=== PATIENT | female | born 2000 | race Caucasian/White ===

== ENCOUNTER 2019-05-11 13:46 | Outpatient (RCR) | payer OTHER, SELFPAY ==
[2019-05-11 14:16] LABS: Hematocrit 32.2 % (37.0-47.0); Hemoglobin 10.7 g/dL (12.0-15.0)
[2019-05-11 15:09] LABS: HIV 1/2 Ab P24 Ag Result Negative (Negative)
--- NOTE | 2019-05-11 20:07 | PC.NURSE ---
Patient to OB stating she is here for Rhogam. Per blood bank pt is RH positive (A+) No rhogam issuued.
[2019-05-12 10:13] LABS: Rapid Plasma Reagin Non-Reactive (NonReactive)
== END 2019-08-09 23:59 | disposition home or self-care (01) ==
LOC: ANHLAB 13:46
PROVIDERS: Visit Provider Obstetrics & Gynecology
DX: Z36.89 Encounter for other specified antenatal screening (principal)
CPT/HCPCS: 36415; 85014; 85018; 86592; 86703; G0432

== ENCOUNTER 2019-07-12 23:30 | Observation (INO) | payer OTHER, SELFPAY ==
--- NOTE | 2019-07-13 01:04 | LDADM ---
This patient, Ector Pope, was admitted to Labor/Delivery/Recovery 105 on 07/12/19 at 23:30. Plans for labor, pain management and were discussed with patient. Patient/family oriented to hospital policies and general routines including ID bracelet, bed and alarms, visiting hours, pain management, procedures, bathroom and other care routines, personal items, smoking policy, room service/diet and guest tray routines, infant security routines, and visiting hours. Patient/Family are encouraged to report perceived risks to care and to ask questions if they do not understand what they are told or what they should do. See OBIX for further documentation.
[2019-07-13 01:05] VITALS: BMI 47.5
--- NOTE | 2019-08-05 11:54 | PM.OBTRLD ---
OB - Triage/Final Diagnosis Visit Information Date of evaluation: 07/13/19 Final Diagnosis (1) False labor: Code(s): O47.9 - False labor, unspecified Status: Acute
== END 2019-07-13 01:25 | disposition home or self-care (01) ==
PROVIDERS: Admitting Provider Obstetrics & Gynecology; Visit Provider Obstetrics & Gynecology
DX: O47.1 False labor at or after 37 completed weeks of gestation (principal); Z3A.38 38 weeks gestation of pregnancy
CPT/HCPCS: G0378; G0379

== ENCOUNTER 2019-07-20 12:14 | Observation (INO) | payer OTHER, SELFPAY ==
--- NOTE | ~2019-07-20 | US_ITS ---
EXAMINATION: US OB limited DATE: 07/20/2019 14:20 INDICATION: Abdomen injury. Third trimester. TECHNIQUE: Real-time ultrasound of the pelvis was performed. COMPARISON: None. FINDINGS: There is a single fetus in vertex presentation. The placenta is anterior. heart rate is 154 be ats per minute (bpm). The amniotic fluid volume is subjectively normal. IMPRESSION: 1. Single living fetus in vertex presentation. Reviewed, dictated and finalized at location A. ING SYSTEMS INSTALLER
--- NOTE | 2019-07-20 12:14 | OBADM ---
This patient, Ector Pope, admitted to the OB room Labor/Delivery/Recovery 118 for observation. Patient/family oriented to hospital policies and general routines including ID bracelet, bed and alarms, visiting hours, pain management, procedures, bathroom and other care routines, personal items, smoking policy, room service/diet, and visiting hours. Patient/Family are encouraged to report perceived risks to care and to ask questions if they do not understand what they are told or what they should do.
[2019-07-20 15:01] VITALS: BP 114/89; PULSE 99
[2019-07-20 16:01] VITALS: BP 128/75; PULSE 84
[2019-07-20 16:44] VITALS: BMI 47.8
--- NOTE | 2019-08-03 19:54 | PM.OBTRLD ---
OB - Triage/Final Diagnosis Final Diagnosis (1) Fall: Code(s): W19.XXXA - Unspecified fall, initial encounter Status: Acute
== END 2019-07-20 18:35 | disposition home or self-care (01) ==
PROVIDERS: Admitting Provider Obstetrics & Gynecology; Visit Provider Obstetrics & Gynecology
DX: O99.89 Other specified diseases and conditions complicating pregnancy, childbirth and the puerperium (principal); W19.XXXA Unspecified fall, initial encounter; Z3A.39 39 weeks gestation of pregnancy
CPT/HCPCS: 76815; G0378; G0379

== ENCOUNTER 2019-07-27 19:15 | Inpatient (IN) | payer OTHER, SELFPAY ==
[2019-07-27] VITALS (7 sets, daily range): BP systolic 118–129; BP diastolic 52–76; PULSE 83–115; TEMP 36.2–37.1; BMI 48.0
[2019-07-27 20:08] LABS: Basophils Percent Auto 0.3 % (0.2-1.2); Eosinophils Percent Auto 0.3 % (0-4.4); Hematocrit 32.7 % (37.0-47.0); Hemoglobin 10.7 g/dL (12.0-15.0); Immature Granulocyte Absolute 0.09 K/mm3 (0.00-0.031); Immature Granulocyte Percent A 0.6 % (0-0.5); Lymphocytes Absolute Auto 1.93 K/mm3 (0.9-3.2); Lymphocytes Percent Auto 13.8 % (18.3-44.2); Mean Corpuscular HGB Conc 32.7 g/dl (32-36); Mean Corpuscular Hemoglobin 28.8 pg (26-34); Mean Corpuscular Volume 88.1 fl (80-100); Mean Platelet Volume 9.5 fl (7.4-10.4); Monocytes Percent Auto 6.9 % (2.6-8.5); Neutrophils Absolute Auto 10.9 K/mm3 (1.3-6.7); Neutrophils Percent Auto 78.1 % (45.5-73.1); Platelet Count Result 246 k/mm3 (150-375); Red Blood Count 3.71 M/mm3 (4.2-5.4); Red Cell Distribution Width 13.1 % (11.5-14.5)
--- NOTE | 2019-07-27 20:16 | LDADM ---
This patient, Ector Pope, was admitted to Labor/Delivery/Recovery 108 on 07/27/19 at 19:15. Plans for labor, pain management and were discussed with patient. Patient/family oriented to hospital policies and general routines including ID bracelet, bed and alarms, visiting hours, pain management, procedures, bathroom and other care routines, personal items, smoking policy, room service/diet and guest tray routines, infant security routines, and visiting hours. Patient/Family are encouraged to report perceived risks to care and to ask questions if they do not understand what they are told or what they should do. See OBIX for further documentation.
[2019-07-27] MEDS: AMPICILLIN 2 GM/NS 100 ML 2 GM/100 ML BAG IVPB (20:47)
[2019-07-27] MEDS: LACTATED RINGERS 1,000 ML 125 ML IV CONT (20:47)
[2019-07-27] MEDS: DINOPROSTONE 10 MG VAG INSERT VAGINAL (20:54)
[2019-07-28] VITALS (100 sets, daily range): BP systolic 60–157; BP diastolic 18–102; PULSE 68–151; TEMP 35.9–37.1; O2SAT 84–100
[2019-07-28] MEDS: AMPICILLIN 1 GM/NS 50 ML 1 GM/50 ML BAG IVPB ×6 (00:52→20:58)
--- NOTE | 2019-07-28 02:50 | WPDANESEPP ---
Anes - Eval Pre Procedure Procedure: Labor epidural Date/Time: 07/28/19 02:50 Surgeon: Ryan Cortes M.D. Preop Diagnosis: pain during labor Pre Op Diagnosis: IOL Patient Data Age: 18 Gender: F Height: 1.68 m Weight: 135 kg Last Vital Signs Temp 36.7 C 07/28/19 00:58 Pulse 94 07/27/19 23:01 BP 120/54 L 07/27/19 23:01 Allergies Allergy/AdvReac Type Severity Reaction Status Date / Time No Known Allergies Allergy Unknown Verified 07/08/19 09:21 Home Medications Medication Instructions Recorded Confirmed Type PNV cmb#95-ferrous fumarate-FA 1 tablet PO DAILY 06/29/19 06/29/19 History [] ferrous sulfate [Iron (ferrous 325 mg PO BID 06/29/19 06/29/19 History sulfate)] Laboratory Tests 07/27/19 07/27/19 07/27/19 20:02 20:02 20:02 WBC 14.0 K/mm3 H K/mm3 (4.5-10.0) RBC 3.71 M/mm3 L M/mm3 (4.2-5.4) Hgb 10.7 g/dL L g/dL (12.0-15.0) Hct 32.7 % L % (37.0-47.0) MCV 88.1 fl fl (80-100) MCH 28.8 pg pg (26-34) MCHC 32.7 g/dl g/dl (32-36) RDW 13.1 % % (11.5-14.5) Plt Count 246 k/mm3 k/mm3 (150-375) MPV 9.5 fl fl (7.4-10.4) Immature Gran % (Auto) 0.6 % H % (0-0.5) Neut % (Auto) 78.1 % H % (45.5-73.1) Lymph % (Auto) 13.8 % L % (18.3-44.2) [place] % (Auto) 6.9 % % (2.6-8.5) Eos % (Auto) 0.3 % % (0-4.4) Baso % (Auto) 0.3 % % (0.2-1.2) Lymph # (Auto) 1.93 K/mm3 K/mm3 (0.9-3.2) [place] # (Auto) 1.0 K/mm3 H K/mm3 (0.1-0.6) Eos # (Auto) 0.0 K/mm3 K/mm3 (0-0.3) Baso # (Auto) 0.0 K/mm3 K/mm3 (0.0-0.1) Abs Immat Gran (auto) 0.09 K/mm3 H K/mm3 (0.00-0.031) Absolute Neuts (auto) 10.9 K/mm3 H K/mm3 (1.3-6.7) Absolute Nucleated RBC 0.0 K/mm3 K/mm3 (0.0-0.012) Nucleated RBC % 0.0 % % (0.0-0.2) RPR Pending Blood Type A Positive Antibody Screen Negative Patient hx anesthesia problems: none Family hx anesthesia problems: none PMFSH Social History Social History Years smoked: 2 Smoking status: Former smoker Tobacco type: cigarettes Second hand tobacco smoke exposure: Yes Substance use: former Gender identity (if verbalized by the patient): Female Spiritual care concerns: No Exam Day of Procedure 07/28/19 02:50
--- NOTE | 2019-07-28 07:34 | WPDOBADMIT ---
Obstetrics - Admit Note Admission Note: record reviewed. No pertinent additions to the history and/or any subsequent changes in the physical findings that are not consistent with the expected course of the were found. Additions to the history and/or subsequent changes in the physical findings follow. at 40+1 for induction of labor. Cervidil currently in place, due to come out at 0900. GBS+ so continue ampicillin.
--- NOTE | 2019-07-28 09:24 | PM.GYNPNOP ---
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 and plan (1) Term : Code(s): Z34.90 - Encounter for supervision of normal , unspecified, unspecified trimester Status: Acute Assessment and Plan: reassuring FHT's, arom - clear, 2-33/50/-3 Time Spent With Patient Time: Total time spent is greater than 50% in coordination of care (as documented) at patient's floor/unit and/or counseling patient: Time with patient: less than 15 minutes ADULT BASIC EDUCATION TEACHER- PN:Subj Post-Op Subjective Date/time seen: 07/28/19 09:24 ADULT BASIC EDUCATION TEACHER - PN: Obj Data Vital Signs Vital Signs: Vital Signs - 24 hr 07/27/19 20:32 07/27/19 20:44 07/27/19 21:23 Temperature 97.2 F L 98.8 F Pulse Rate 115 H 97 Blood Pressure 129/52 L 119/68 07/27/19 21:30 07/27/19 22:00 07/27/19 22:31 Temperature Pulse Rate 115 H 100 83 Blood Pressure 118/76 122/66 118/66 07/27/19 23:01 07/28/19 00:58 07/28/19 04:59 Temperature 98.1 F 97.9 F Pulse Rate 94 Blood Pressure 120/54 L 07/28/19 08:05 07/28/19 08:10 Temperature 98 F Pulse Rate 95 Blood Pressure 123/70 Intake/Output Intake/Output: Intake & Output 07/25/19 07/26/19 07/27/19 07/28/19 23:59 23:59 23:59 23:59 Intake Total 100 Balance 100 Meds/Results Medications: Active Medications Generic Name Dose Route Start Last Admin Trade Name Freq PRN Reason Stop Dose Admin Atropine Sulfate 0.4 mg 07/28/19 02:49 Atropine Sulfate IV PUSH PRN PRN Bradycardia Ephedrine Sulfate 5 mg 07/28/19 02:49 Ephedrine Sulfate Inj IV PUSH Q5MIN PRN for hypotension (syst. < 100) Fentanyl Citrate 50 mcg 07/27/19 19:35 Sublimaze IV PUSH Q1H PRN Pain Rated 5 or Less Fentanyl Citrate 100 mcg 07/27/19 19:35 Sublimaze IV PUSH Q1H PRN Pain Rated 6 or Greater Lactated Ringer's 1,000 mls @ 125 mls/hr 07/27/19 19:35 07/27/19 20:47 Lr - Lactated Ringers Iv IV CONT 125 mls/hr .Q8H NATO Administration Oxytocin/Dextrose 500 mls @ 125 mls/hr 07/27/19 19:35 Oxytocin 30 Units/D5w 500 Ml IV CONT .Q4H PRN if not received in labor Ampicillin Sodium 1 gm in 50 mls @ 100 mls/hr 07/28/19 00:00 07/28/19 09:10 Ampicillin 1 Gm/Ns 50 Ml IVPB 100 mls/hr Q4H NATO Administration Oxytocin/Dextrose 500 mls @ 2 mls/hr 07/28/19 08:00 Oxytocin 30 Units/D5w 500 Ml IV CONT .Q24H NATO Oxytocin/Dextrose 500 mls @ 999 mls/hr 07/27/19 19:35 Oxytocin 30 Units/D5w 500 Ml IV CONT .Q31M PRN if not received in labor Naloxone HCl 0.1 mg 07/27/19 19:35 Narcan IV PUSH Q2M PRN Respiratory rate less than 10 Naloxone HCl 0.1 mg 07/28/19 02:49 Narcan IV PUSH ONCE PRN for resp. rate less than 10 Ondansetron HCl 4 mg 07/27/19 19:35 Zofran Inj IV PUSH Q6H PRN Nausea And Vomiting Phenylephrine/Sodium Chloride 100 mcg 07/28/19 02:49 Phenylephrine IV PUSH Q5MIN PRN for hypotension (syst. < 100) Labs CBC & Chem 7: 07/27/19 20:02 Labs: Laboratory Results - last 24 hr 07/27/19 07/27/19 20:02 20:02 WBC 14.0 H RBC 3.71 L Hgb 10.7 L Hct 32.7 L MCV 88.1 MCH 28.8 MCHC 32.7 RDW 13.1 Plt Count 246 MPV 9.5 Immature Gran % (Auto) 0.6 H Neut % (Auto) 78.1 H Lymph % (Auto) 13.8 L [place] % (Auto) 6.9 Eos % (Auto) 0.3 Baso % (Auto) 0.3 Lymph # (Auto) 1.93 [place] # (Auto) 1.0 H Eos # (Auto) 0.0 Baso # (Auto) 0.0 Abs Immat Gran (auto) 0.09 H Absolute Neuts (auto) 10.9 H Absolute Nucleated RBC 0.0 Nucleated RBC % 0.0 Blood Type A Positive Antibody Screen Negative
[2019-07-28 09:25] LABS: Rapid Plasma Reagin Non-Reactive (NonReactive)
[2019-07-28] MEDS: LACTATED RINGERS 1,000 ML 125 ML IV CONT ×2 (18:25→21:00)
[2019-07-28] MEDS: PHENYLEPHRINE 1,000 MCG/10 ML SYRINGE 100 MCG IV PUSH ×2 (19:33→19:36)
[2019-07-29] VITALS (18 sets, daily range): BP systolic 96–143; BP diastolic 59–90; PULSE 78–203; RESP 16–18; TEMP 36.5–37.4; O2SAT 99–100
--- NOTE | 2019-07-29 01:03 | PM.OBPRVD ---
OB - Delivery Note Procedure Delivery date: 07/29/19 Procedure: events: Labor Induction Intrapartal events: None Induction method: AROM and per pitocin protocol Delivery monitor: external FHT and internal uterine Route of delivery: Laceration description: Vaginal - 1st Degree Delivery repair: vicryl Specimen: No Estimated blood loss (mL): 400 Anesthesia type: Epidural Disposition: floor Baby Date of : 07/29/19 Time of : 00:47 Weeks of gestation at delivery: 40 gender: Female Weight (pounds): 7 Weight (ounces): 15 presentation: vertex position: Left Occiput Anterior Placenta delivery description: Spontaneous cord vessel description: 3 Vessels score one minute: 8 score five minutes: 9
[2019-07-29] MEDS: WITCH HAZEL 40 PADS 1 PAD TOPICAL (02:08)
[2019-07-29] MEDS: BENZOCAINE 20% AER SPR (*SP) 56 GM CAN 1 SPRAY TOPICAL (02:08)
--- NOTE | 2019-07-29 03:19 | OBPPTRN ---
Patient transferred to post room #279 via (wheelchair) - infant transported to via crib. Support person present. Oriented to unit, room, information board, rooming in, admission packet and security measures. Patient verbalizes understanding.
[2019-07-29] MEDS: IBUPROFEN 600 MG TABLET PO (12:05)
[2019-07-29] MEDS: MEASLES,MUMPS,RUBELLA VACCINE 0.5 ML VIAL (12:05)
[2019-07-30 05:17] LABS: Hemoglobin 9.3 g/dL (12.0-15.0)
--- NOTE | 2019-07-30 07:00 | PC.NURSE ---
Pt introductions made and plan of care discussed per post , pain management, bottle feeding, daily care activities and pending discharge to home. PT verbalized understanding of such care.
--- NOTE | 2019-07-30 07:40 | P.PNOB_ITS ---
OB - PN: Subj Subjective Date/time seen: 07/30/19 07:40 Patient comments: no complaints, pain well controlled and other (Lochia similar to menses) [place] baby status: doing well OB - PN: Obj Data Labs CBC & Chem 7: 07/30/19 04:32 Labs: Laboratory Results - last 24 hr 07/30/19 04:32 Hgb 9.3 L Hct 28.0 L OB - PN A/P Plan day: 1 (s/p vaginal delivery, doing well) Plan: routine care Time Spent With Patient Time: Total time spent is greater than 50% in coordination of care (as do cumented) at patient's floor/unit and/or counseling patient: Exam Const: General: no acute distress GI: Inspection: other (Fundus firm and nontender at umbilicus) GI Palp: Yes Soft to palpation and No Tenderness to palpation present (GI) Extrem: General: no edema
[2019-07-30 08:10] VITALS: BP 134/86; PULSE 75; RESP 18; TEMP 36.4
[2019-07-30] MEDS: POLYSACCHARIDE IRON COMPLEX 150 MG CAPSULE PO (08:48)
[2019-07-30] MEDS: DOCUSATE SODIUM 100 MG CAPSULE PO (08:48)
[2019-07-30] MEDS: IBUPROFEN 600 MG TABLET PO (10:44)
[2019-07-30 10:45] VITALS: BP 128/75; PULSE 89; RESP 16; TEMP 36.6; O2SAT 99
--- NOTE | 2019-07-30 11:00 | PC.NURSE ---
Patient viewed the discharge video Mother & Baby Care, The First Two Weeks . Patient was given the opportunity and encouraged to ask questions. Patient verbalized understanding of information shared and has been given the mother/baby guide for home reference.
--- NOTE | 2019-07-30 12:40 | PC.NURSE ---
PT received discharge instructions per protocol and verbalized understanding of such instructions.
--- NOTE | 2019-07-30 13:33 | PCCCNOTE ---
Care Coordination Note: Met with pt. today who reports she lives at home with her mother, father, and grandparents. This is pt.'s first child. FOB is Shad who is in the room. Pt. reports Shad and her family are her biggest support. Pt. plans to start WIC services at discharge with an appointment already established for tomorrow 07/31. Pt. has all supplies at home including a crib, car seat, clothing, diapers, and bottles. Pt. was provided resources. Pt. denies any further case management needs.
--- NOTE | 2019-07-30 14:06 | WPDANLDPN2 ---
Anes-Prog Note L&D Date/Time: 07/30/19 14:06 Comfortable throughout: labor and delivery Neuraxial method: epidural Epidural/Spinal procedure site: clean & non-tender Neuro status: Neuro function grossly intact. Cardiovascular status: normal Respiratory status: normal Airway patency: baseline Mental status: baseline Post-Op hydration status: normal Vital Signs: Last Vital Signs Temp 97.8 F 07/30/19 10:45 Pulse 89 07/30/19 10:45 Resp 16 07/30/19 10:45 BP 128/75 07/30/19 10:45 Pulse Ox 99 07/30/19 10:45 Post-procedural complaints: none Patient feedback: Patient satisfied with anesthetic care.
--- NOTE | 2019-07-30 14:25 | PC.NURSE ---
PT discharged to home ambulatory accompanied by significant other and to waiting car. Follow up appts confirmed
[2019-08-01 11:12] VITALS: BP 122/78; PULSE 96; RESP 20; TEMP 36.8; O2SAT 99
--- NOTE | 2019-08-23 12:46 | PM.OBDSVD ---
DS: Diagnosis Admitting Diagnosis Admitting Diagnosis: Encounter for supervision of normal , unspecified, third trimester OB - DS: Summary OB Procedures : None OB Procedures Intrapartum: Spontaneous Vag Delivery OB Procedures: : None Peripartum Data Delivery Method: Natural Vaginal complications: none Status at Discharge Functional status at discharge: independent ambulation Time Spent with Patient Time attestation: Total time spent providing and/or coordinating discharge services: Time spent: Less than 30 minutes Discharge Plan Discharge Attending physician on discharge: Shea Ingram Discharging Clinician: Shea Ingram Anticipated Discharge Date/Time: 07/30/19 14:00 Patient Disposition: Home, Self-Care Activity: may shower, may drive after 2 weeks, as tolerated and pelvic rest Diet: regular Discharge Instructions: Education: Mom and Baby Guide Given to: Mother Follow-Up: Call your delivering provider's office for an appointment to be seen in: 4 Weeks Mom and baby should come to the [facility] for the follow-up appointment. Appointment Date/Time: August 01, 2019 at 11:00 am What to expect at your follow-up visit: Blood Pressure Check Call [phone] if you are unable to keep your appointment time. BREAST CARE: 1. Wear a snug supportive bra. 2. For engorgement discomfort: Bottle Feeding: A. May apply ice packs PERINEAL CARE: 1. Until bleeding stops, use your prabhu bottle after urinating 2. Change your pad frequently throughout the day 3. You may take sitz baths several times a day (fill your bathtub with warm water and soak for 20 minutes.) Do NOT bathe in the water 4. No tub baths until seen by your physician - You may shower ACTIVITY: 1. Rest as much as possible. 2. Do not exercise or lift anything heavier than your baby (such as laundry or other children.) 3. Avoid stairs or driving as much as possible. 4. Do not put anything into the vagina. No douching, tampons, or sexual activity until seen by physician. NOTIFY PHYSICIAN IF YOU HAVE ANY QUESTIONS OR IF ANY OF THE FOLLOWING SYMPTOMS OCCUR: 1. If your perineum becomes red, swollen, or more painful than what you have experienced in the hospital. 2. If your vaginal bleeding becomes foul smelling. 3. If your vaginal bleeding becomes more heavy than a period or if your bleeding changes from pink to bright red. However, you may pass an occasional walnut-sized clot once or twice for the first week . 4. If you experience a sharp, shooting pain in you calves. 5. If you discover a hard, reddened area on your breast or if you experience flu-like symptoms. 6. Call for temp 100.4 or greater DIET: 1. Eat regular, well-balanced meals. 2. Drink plenty of fluids daily. If , drink to thirst. Stand Alone Forms: General Discharge Information Follow-up/Referrals: Shea Ingram MD [Physician] - Discharge Medications: New ibuprofen 600 mg Tablet 600 mg PO Q6H PRN (Reason: Cramping) Qty: 60 RF: 0 Continued PNV cmb#95-ferrous fumarate-FA [] 28 mg iron- 800 mcg Tablet 1 tablet PO DAILY RF: 0 ferrous sulfate [Iron (ferrous sulfate)] 325 mg (65 mg iron) Tablet 325 mg PO BID RF: 0 Date of admission: 07/27/19 19:15 Primary Care Provider: UNKNOWN,DOCTOR Admitting Provider: Shea Ingram Discharge Date/Time: 07/30/19 14:25 Attending physician on admission: Shea Ingram
== END 2019-07-30 14:25 | disposition home or self-care (01) | DRG 560 ==
LOC: ANHLDR 19:19 → ANHOB2 07-29 03:24
PROVIDERS: Obstetrics & Gynecology; Admitting Provider Obstetrics & Gynecology; Visit Provider Obstetrics & Gynecology
DX: O99.824 Streptococcus B carrier state complicating childbirth (principal); Z37.0 Single live birth; Z3A.40 40 weeks gestation of pregnancy; O36.8330 Maternal care for abnormalities of the fetal heart rate or rhythm, third trimester, not applicable or unspecified; O70.0 First degree perineal laceration during delivery; Z23 Encounter for immunization
CPT/HCPCS: 36415; 85014; 85018; 85025; 86592; 86850; 86900; 86901; 90471; 90686; 90710; A9270; G0008; J0290; J2370; J2590; J2795; J3010; J7120